=== PATIENT | female | born 1940 | race Caucasian/White ===

== ENCOUNTER → 2017-02-10 | Outpatient (CLI) | payer OTHER ==
[~2017-02-10] MED LIST: ADVIN10/60 INH; ATV5 PO; CHOL100010 PO; CIPR-255 PO; DILT240C9 PO; FLAX100019 PO; LISI-461 PO; OMEG10007 PO; OMEP20CA59 PO; ONDA4TAB7 SL
--- NOTE | 2017-02-11 07:50 | MAMMOGRAPHY REPORT ---
BILATERAL DIGITAL SCREENING MAMMOGRAM TOMOSYNTHESIS WITH CAD: 02/10/2017 CLINICAL HISTORY: Routine screening. Patient has no complaints. TECHNIQUE: Breast tomosynthesis in addition to standard 2D mammography was performed. Current study was also evaluated with a Computer Aided Detection (CAD) system. COMPARISON: Comparison is made to exams dated: 02/06/2016 mammogram, 06/12/2014 mammogram, 08/10/2012 ma mmogram, 07/20/2011 mammogram, 07/14/2010 mammogram, and 07/12/2009 mammogram - [facility]. BREAST COMPOSITION: There are scattered areas of fibroglandular density in both breasts. FINDINGS: There are new grouped calcifications within the right upper outer quadrant. Additionally, there is questionable architectural distortion seen within the right lateral breast as well as right retroareolar breast middle depth on the cc tomosynthesis images. Recommend spot magnification views and possible breast ultrasound for further evaluation. Additionally, there are possible new calcifications within the left upper outer quadrant, with possib le architectural distortion noted in the left upper outer quadrant on the tomosynthesis images. Néstor mmend spot magnification views and possible breast ultrasound for further evaluation. The remainder of both breasts demonstrate no suspicious masses, calcifications, or areas of principal architectural firm ural distortion. IMPRESSION: ACR BI-RADS CATEGORY 0: INCOMPLETE EVALUATION: NEED ADDITIONAL IMAGING EVALUATION Bilateral upper outer quadrant calcifications and possible associated architectural distortion, for w hich additional imaging evaluation is recommended (30 minute time slot). The patient will be called to schedule an appointment. Approximately 10% of breast cancers are not detected with mammography. A negative mammographic report should not delay biopsy if a clinically suggestive mass is present. Misa Montes M.D. ah/:02/10/2017 16:35:01 Termite Treater: Luly JEAN(Kenneth)(Trina)(BD), [facility] letter sent: Addl Imaging 0 BI-RADS Code: ACR BI-RADS Category 0: Incomplete Evaluation: Need Additional Imaging Evaluation
== END | disposition home or self-care (01) ==
LOC: C.MAMM 13:29
PROVIDERS: ATTEND Internal Medicine
DX: Z12.31 Encounter for screening mammogram for malignant neoplasm of breast (principal); R92.1 Mammographic calcification found on diagnostic imaging of breast

== ENCOUNTER → 2017-02-10 | Outpatient (CLI) | payer OTHER ==
[2017-02-10 16:55] LABS: BASO % 0.5 %; BASO ABS # 0.03 K/uL (0-0.2); COMPLETE YES; EOS % 1.7 %; HEMATOCRIT 41.3 % (37-47); IG% 0.3 %; LYMPH ABS # 2.24 K/uL (1.2-3.4); MEAN CELL VOLUME 83.9 fL (80-100); MEAN CORPUSCULAR HEMOGLOBIN 27.2 pg (25-34); MEAN CORPUSCULAR HGB CONC 32.4 g/dl (32-36); MEAN PLATELET VOLUME 11.4 fL (7.4-10.4); MONO % 7.3 %; NEUT % 56.2 %; PLATELET COUNT 309 K/uL (130-400); RED BLOOD COUNT 4.92 M/uL (4.2-5.4); WHITE BLOOD COUNT 6.58 K/uL (4.8-10.8)
[2017-02-10 17:08] LABS: ALT/SGPT 29 U/L (12-78); AST/SGOT 17 U/L (15-37); BLOOD UREA NITROGEN 20 mg/dl (7-18); BUN/CREATININE RATIO 20.7 (10-20); CALCIUM 9.1 mg/dl (8.5-10.1); CARBON DIOXIDE 25 mmol/L (21-32); CHLORIDE 108 mmol/L (98-107); CREATININE 0.97 mg/dl (0.60-1.20); GLUCOSE 86 mg/dl (70-99); POTASSIUM 4.1 mmol/L (3.5-5.1); SODIUM 140 mmol/L (136-145)
[2017-02-10 17:19] LABS: ALB/GLOB RATIO 1.1 (0.9-2); ALKALINE PHOSPHATASE 171 U/L (45-117); CHOLESTEROL 225 mg/dl (0-200); CHOLESTEROL/HDL RATIO 2.5; HDL CHOLESTEROL 90 mg/dl; LDL CHOLESTEROL CALCULATED 120 mg/dl; THYROID STIMULATING HORMONE 0.822 uIu/ml (0.300-4.500); TRIGLYCERIDES 73 mg/dl (0-150); VERY LOW DENSITY LIPOPROT CALC 15 mg/dl
== END | disposition home or self-care (01) ==
LOC: C.LABBC 12:56
PROVIDERS: ATTEND Internal Medicine
DX: Z00.00 Encounter for general adult medical examination without abnormal findings (principal); J45.991 Cough variant asthma; K21.9 Gastro-esophageal reflux disease without esophagitis; E55.9 Vitamin D deficiency, unspecified; R74.8 Abnormal levels of other serum enzymes; I10 Essential (primary) hypertension

== ENCOUNTER → 2017-02-19 | Outpatient (CLI) | payer OTHER ==
--- NOTE | 2017-02-19 15:38 | MAMMOGRAPHY REPORT ---
BILATERAL DIGITAL DIAGNOSTIC MAMMOGRAM AND TARGETED BILATERAL ULTRASOUND: 02/19/2017 CLINICAL HISTORY: Callback from screening mammogram for bilateral calcifications and questionable ass ociated architectural distortion. TECHNIQUE: Spot magnification bilateral cc and ML views were obtained. COMPARISON: Comparison is made to exams dated: 02/10/2017 mammogram, 02/06/2016 mammogram, 06/12/2014 m ammogram, 08/10/2012 mammogram, 07/20/2011 mammogram, and 07/14/2010 mammogram - [facility]. BREAST COMPOSITION: There are scattered areas of fibroglandular density in both breasts. FINDINGS: Spot magnification views of the right breast demonstrate new pleomorphic calcifications th roughout the right upper outer quadrant. The calcifications measure at least 6.2 x 4.1 x 3.9 cm in e xtent. Spot magnification views of the left breast demonstrate new grouped calcifications within the left upper outer quadrant which are also pleomorphic in morphology. The calcifications measure at l east 3.8 x 3.3 x 4 cm in extent. The calcifications are suspicious for DCIS and stereotactic biopsy of bilateral calcifications is recommended for further evaluation. Targeted ultrasound was performed of bilateral upper outer quadrants given the questionable data modeling architect ural distortion associated with the calcifications on the recent tomosynthesis screening mammograms. There is heterogeneous tissue is seen in these regions. A few areas of shadowing are noted, includin g ill-defined shadowing in the left 2:00 breast, 2 cm from the nipple and ill-defined shadowing in th e right 11:00 periareolar breast. No discrete suspicious masses noted on ultrasound. Morphologicall y normal bilateral axillary lymph nodes are seen, without evidence of adenopathy. IMPRESSION: ACR BI-RADS CATEGORY 4: SUSPICIOUS, TARGETED ULTRASOUND ACR BI-RADS CATEGORY 4: SUSPICIO US 1. New pleomorphic calcifications throughout the right upper outer quadrant, with possible associated architectural distortion on the tomosynthesis images. The calcifications measure up to 6.2 cm in ex tent. Findings are suspicious for DCIS and stereotactic biopsy is recommended for further evaluation . 2. New grouped calcifications in the left upper outer quadrant with questionable associated architec tural distortion noted on the tomosynthesis images. The calcifications measure up to 4 cm in extent. Findings are suspicious for DCIS and stereotactic biopsy is recommended for further evaluation. A phone call was made to the physician's office to confirm faxed results were received. The patient has been verbally notified of the results. She is tentatively scheduled the biopsies before leaving the department. Approximately 10% of breast cancers are not detected with mammography. A negative mammographic report should not delay biopsy if a clinically suggestive mass is present. Misa Montes M.D. ah/:02/19/2017 11:46:08 Ham Pumper: Melissa LOYA)(Trina), [facility] letter sent: Abnormal 4/5 BI-RADS Code: ACR BI-RADS Category 4: Suspicious Ultrasound BI-RADS: ACR BI-RADS Category 4: Suspici ous
== END | disposition home or self-care (01) ==
LOC: C.MAMM 09:15
PROVIDERS: ATTEND Internal Medicine
DX: R92.0 Mammographic microcalcification found on diagnostic imaging of breast (principal)

== ENCOUNTER → 2017-03-02 | Outpatient (CLI) | payer OTHER ==
--- NOTE | 2017-03-02 11:12 | Discharge Instructions ---
Discharge Instructions Procedure Procedure Date: Mar 02, 2017. Reason for visit: Bilateral Calcs. Discharge Discharge Date: Mar 02, 2017. Discharge Diagnosis: post bilateral breast stereotactic guided biopsy Medications Restart Stopped Medication(s): May restart Aspirin tomorrow Instructions Activity Recommendations: Additional Limitations (see below) Return to School/Work: no limitations Recommended Home Diet: No Limitations Provider Instructions: ACTIVITY RECOMMENDATIONS: * No lifting, pushing, pulling or exercising the affected side for three days. RETURN TO SCHOOL/WORK: * You may return to work/school after the procedure, but do not perform any strenuous activities for 24 to 48 hours. MEDICATIONS: * Tylenol (two 325 mg) every four to six hours if needed for mild pain (if not allergic to Tylenol). DIET: * Resume previous diet. SPECIAL CARE INSTRUCTIONS: * Keep biopsy site dry for 24 hours. May shower after 24 hours, but do not soak (bathe) incision. * May remove Tegaderm (plastic patch) tomorrow AFTER showering. * Leave the steri-strips on for one week. Allow the steri-strips to fall off by themselves. If not off after one week, you may remove them. You may place a Bandaid crosswise over the strips, if desired. * Apply ice 10 minutes on and 10 minutes off as needed. * Wear a bra at bedtime to sleep more comfortably for 2-3 days. * Your referring physician should have the results after approximately 5 to 7 business days. * Call for unusual bleeding, fever, drainage, etc or if you have any questions call [phone] during normal business hours or after hours call Dr Constantino, . FOLLOW UP VISIT: Follow-up with Referring Physician as scheduled. Allergies Coded Allergies: Sulfa Antibiotics (Verified Allergy, Intermediate, HIVES, 05/09/14) Oxycodone (Verified Allergy, Unknown, RASH, 05/09/14) Jaun Ackerman Recommendations: Call your doctor if: * Temperature above 101 degrees * Pain not relieved by pain medicine ordered * There is increased drainage or redness from any incision * You have any unanswered questions or concerns. Your Doctors Instructions noted above were prepared by provider Janice Constantino. Patient Signature Section: Patient Instructions Signature Page Paulinechip Basurto Patient (or Guardian) Signature/Date: I have read and understand the instructions given to me by my caregivers. Caregiver/RN/Doctor Signature/Date: The above-named patient and/or guardian has received patient instructions on this date. + Original Patient Signature Page (only) stays with chart. Please make copy for patient.
--- NOTE | 2017-03-02 15:08 | MAMMOGRAPHY REPORT ---
STEREOTACTIC GUIDED BIOPSY: 03/02/2017 CLINICAL HISTORY: Suspicious regional pleomorphic microcalcifications in the right upper outer quadra nt and clustered macro calcifications with possible associated architectural distortion in the left u pper outer quadrant. Patient presents for bilateral breast stereotactic guided biopsy. Please refer to the report from right breast stereotactic guided biopsy performed at the same time fo r full detail. IMPRESSION: STEREOTACTIC GUIDED BIOPSY Please refer to the report from right breast stereotactic guided biopsy performed at the same time fo r full detail. Janice Constantino M.D. ay/:03/02/2017 10:49:32 Attending Technologist: Halie Hernandez RT(R)(M), [facility] Completions Manager: Armando Cole RT(R)(M), [facility]
--- NOTE | 2017-03-02 15:08 | MAMMOGRAPHY REPORT ---
BILATERAL DIGITAL DIAGNOSTIC MAMMOGRAM: 03/02/2017 CLINICAL HISTORY: Status post stereotactic biopsy of pleomorphic microcalcifications regionally distr ibuted in the right upper outer quadrant, and clustered in the left upper outer quadrant. Please refer to report from right breast stereotactic guided biopsy performed at the same time for fu ll detail. IMPRESSION: POST PROCEDURE IMAGING FOR MARKER PLACEMENT Please refer to report from right breast stereotactic guided biopsy performed at the same time for fu ll detail. Approximately 10% of breast cancers are not detected with mammography. A negative mammographic report should not delay biopsy if a clinically suggestive mass is present. Janice Constantino M.D. ay/:03/02/2017 10:50:34 Attending Technologist: Halie Hernandez RT(R)(M), [facility] Temp Recruiter: Armando Cole RT(R)(M), [facility] BI-RADS Code: Post Procedure Imaging For Marker Placement
--- NOTE | 2017-03-02 15:08 | MAMMOGRAPHY REPORT ---
STEREOTACTIC GUIDED BIOPSY RIGHT BREAST: 03/02/2017 CLINICAL HISTORY: Suspicious regional pleomorphic microcalcifications in the right upper outer quadra nt and clustered macro calcifications with possible associated architectural distortion in the left u pper outer quadrant. Patient presents for bilateral breast stereotactic guided biopsy. COMPARISON: Comparison is made to exams dated: 02/19/2017 ultrasound, 02/19/2017 mammogram, 7 mammogram, 02/06/2016 mammogram, 06/12/2014 mammogram, and 08/10/2012 mammogram - [facility]. PATIENT CONSENT: After explaining the risks, benefits and alternatives of the procedure to the patien t, informed consent was obtained both verbally and in writing. Specific risks include: Bleeding, inf ection, puncture of adjacent structure, pain, nontarget biopsy, sampling error, metal allergy and med ication reaction. PROCEDURE DESCRIPTION: A time-out was performed and both breasts were confirmed as sites of stereotac tic biopsy. The patient was placed prone on the stereotactic biopsy table and first the right breast was placed in lateralmedial compression. A auto mechanics teacher image was obtained that demonstrated the clustered microcalcifications in question. They are amenable to sterotactic biopsy. Then +15 and -15 stereo pair images were obtained. The calcifications were targeted utilizing the coordinates obtained by [employer]. The skin was prepped with Betadine. 1% Lidocaine with and without epinipherine was admin istered as local anesthesia. A small skin incision was made. Through the incision, the needle was in serted to the depth determined by the computer. 10 samples were obtained using a Browsarityiva 9-gauge vacuum-assisted biopsy device. The specimen radiograph demonstrated several solar sales representative microcalci fications, therefore, a metallic marker was placed at the biopsy site. There was no immediate complic ation. Hemostasis was achieved after several minutes of manual compression. The samples were sent to pathology in a single appropriately labeled container, as calcifications were identified within near ly every core biopsy sample. Then, the patient was repositioned and the left breast was placed in lateralmedial compression. A sc out image was obtained that demonstrated the clustered microcalcifications in question. +15 and -15 stereo pair images were obtained. The calcifications were targeted utilizing the coordinates obtain ed by the computer. The skin was prepped with Betadine. 1% Lidocaine with and without epinipherine w as administered as local anesthesia. A small skin incision was made. Through the incision, the needl e was inserted to the depth determined by the computer. 10 samples were obtained using a Browsarityiva 9-gauge vacuum-assisted biopsy device. The specimen radiograph demonstrated several solar sales representative mi crocalcifications, therefore, a metallic marker was placed at the biopsy site. There was no immediate complication. Hemostasis was achieved after several minutes of manual compression. The samples were sent to pathology in a single appropriately labeled container, as calcifications were identified wit hin nearly every core biopsy sample. Postprocedure CC and ML views of each breast were obtained. There is a new dumbbell-shaped biopsy ma rker clip in the right breast, and small, 16mm hematoma at the biopsy site. A dumbbell shaped biopsy marker clip is also seen in the left upper outer quadrant, but no significant postbiopsy hematoma id entified on the left. IMPRESSION: STEREOTACTIC GUIDED BIOPSY Status post bilateral stereotactic guided biopsies of pleomorphic microcalcifications in each breast, with biopsy marker clips placed at the site of biopsy. The patient will receive notification of the biopsy results from her referring physician. Janice Constantino M.D. ay/:03/02/2017 11:33:52 Attending Technologist: Halie Hernandez RT(R)(M), [facility] [employer] Marketing Associate: Armando OSEGUERAR)(M), [facility]
== END | disposition home or self-care (01) ==
LOC: C.MAMM 09:46
PROVIDERS: ATTEND Internal Medicine
DX: R92.0 Mammographic microcalcification found on diagnostic imaging of breast (principal); D05.81 Other specified type of carcinoma in situ of right breast

== ENCOUNTER → 2017-03-08 | Outpatient (CLI) | payer OTHER ==
[2017-03-08 14:37] LABS: BLOOD UREA NITROGEN 22 mg/dl (7-18); BUN/CREATININE RATIO 20.6 (10-20); CREATININE 1.07 mg/dl (0.60-1.20)
== END | disposition home or self-care (01) ==
LOC: C.LABBC 10:05
PROVIDERS: ATTEND Surgery
DX: D05.11 Intraductal carcinoma in situ of right breast (principal)

== ENCOUNTER → 2017-03-16 | Outpatient (CLI) | payer OTHER ==
[~2017-03-16] MED LIST changes: +GADAVIST IV PRN
--- NOTE | 2017-03-17 16:03 | MAMMOGRAPHY REPORT ---
BREAST MRI OF BOTH BREASTS : 03/16/2017 CLINICAL HISTORY: Recent biopsy proven bilateral breast DCIS. Patient presents for preoperative asse ssment to assess for extent of disease. COMPARISON: Comparison is made to exams dated: 03/02/2017 stereotactic biopsy, 03/02/2017 mammogram, 03/02/2017 stereotactic biopsy, 02/19/2017 ultrasound, 02/19/2017 mammogram, and 02/10/2017 mammogram - [facility]. TECHNIQUE: Using a 1.5 Cat magnet and dedicated breast coil, multisequence axial images were obtain ed through the breasts. After uneventful IV administration of 7.5 mL of Gadavist, dynamic multiphase contrast-enhanced axial images, and sagittal postcontrast were obtained. Temporal subtraction axial images and 3-D MIP images are provided. Everything was then reviewed on a 3-D workstation, [employer]. FINDINGS: Right breast: There is diffuse enhancement of the glandular tissue of the right breast. Susceptibili ty artifact from a biopsy marker clip is identified in the approximate 9:00 to 10:00 right breast. T he kinetic pattern is mixed persistent and plateau with clumped areas of washout kinetics throughout. These findings are concerning for multicentric right breast DCIS, which is noted within the upper i nner, upper outer and inferior breast. Based on the enhancement, the area involved measures approxim ately 5.1 cm in craniocaudal by 4.1 cm in AP by 3.2 cm in transverse dimension. No focal skin thicke bladimir or nipple retraction. The retromammary fat is intact. No suspicious right axillary lymphadenop athy. Left breast: There is diffuse enhancement of the glandular tissue of the left breast. Susceptibility artifact from a biopsy clip is identified in the approximate 3:00 middle one third of the left breas t. The kinetic pattern of enhancement is mixed persistent and plateau, again with clumped areas of w ashout kinetics throughout similar in appearance to the contralateral right breast. These findings a re concerning for multicentric left breast DCIS, mostly within the upper inner and upper outer quadra nt of the left breast. Based on the enhancement, the area involved measures approximately 5.5 cm in craniocaudal by 6.3 cm in AP by 3.5 cm in transverse dimension. No focal skin thickening or nipple r etraction. The retromammary fat is intact. No suspicious left axillary lymphadenopathy. IMPRESSION: ACR BI-RADS CATEGORY 6: KNOWN BIOPSY PROVEN MALIGNANCY 1. Diffuse enhancement of the glandular tissue of both breasts, predominantly within the upper inner and upper outer quadrants of each breast but also involving the inferior right breast. These findin gs are concerning for multicentric bilateral DCIS. Size measurements are similar to those obtained m ammographically taking into account measuring both microcalcifications and areas of distortion. 2. No suspicious axillary adenopathy identified. The patient will receive written notification of the results. Janice Constantino M.D. ay/:03/16/2017 18:09:19 Information Delivery Analyst: risk control field representative, [facility] letter sent: Birad 6 BI-RADS Code: ACR BI-RADS Category 6: Known Biopsy Proven Malignancy
== END | disposition home or self-care (01) ==
LOC: C.MRI 08:12
PROVIDERS: ATTEND Surgery
DX: D05.11 Intraductal carcinoma in situ of right breast (principal); D05.12 Intraductal carcinoma in situ of left breast

== ENCOUNTER 2017-04-09 07:25 | Observation (INO) | payer OTHER ==
[2017-03-26 09:38] VITALS: BMI 28.0
--- NOTE | 2017-03-26 10:07 | PAT Medication Instructions ---
Service Date Mar 26, 2017. Current Home Medication List Aspirin (Aspirin Ec), 81 MG PO QAM Cholecalciferol (D-1000), 1 TAB PO QAM Diltiazem Hcl (Tiazac 240 Mg), 240 MG PO DAILY Fish Oil (Plains-3), 1,200 MG PO DAILY Flaxseed (Linseed) (Flaxseed Oil 1000 mg), 1 CAP PO DAILY Fluticasone Prop/Salmeterol (Advair Diskus 250-50 Mcg/Dose), 1 PUFF INH DAILY PRN for SOB/Wheezing Lisinopril (Zestril), 10 MG PO QAM Lorazepam (Lorazepam), 1 TAB PEG DAILY PRN for Anxiety/Agitation Omeprazole (Prilosec), 20 MG PO DAILY Medication Instructions For Your Scheduled Surgery - Hold the following medications 2 weeks prior to surgery: Flaxseed (Linseed) (Flaxseed Oil 1000 mg), 1 CAP PO DAILY Fish Oil (Plains-3), 1,200 MG PO DAILY - Hold the following medications 7 days prior to surgery per your surgeon's instructions Aspirin (Aspirin Ec), 81 MG PO QAM - Hold the following medications the night before surgery: Lisinopril (Zestril), 10 MG PO QAM - Hold the following medications the morning of surgery: Cholecalciferol (D-1000), 1 TAB PO QAM - Take the following medications the morning of surgery with a sip of water: Omeprazole (Prilosec), 20 MG PO DAILY Lorazepam (Lorazepam), 1 TAB PEG DAILY PRN for Anxiety/Agitation (if needed) Fluticasone Prop/Salmeterol (Advair Diskus 250-50 Mcg/Dose), 1 PUFF INH DAILY PRN for SOB/Wheezing (if needed) Diltiazem Hcl (Tiazac 240 Mg), 240 MG PO DAILY - Take the following medications as scheduled the night before surgery: Lorazepam (Lorazepam), 1 TAB PEG DAILY PRN for Anxiety/Agitation (if needed) Fluticasone Prop/Salmeterol (Advair Diskus 250-50 Mcg/Dose), 1 PUFF INH DAILY PRN for SOB/Wheezing (if needed) If you have any questions please call us at [phone] or [phone] or [phone]
[2017-04-09] VITALS (11 sets, daily range): BP systolic 120–162; BP diastolic 70–83; PULSE 67–80; TEMP 36–36.8; O2SAT 92–97; Ht 167.6 cm; Wt 79.0 kg
[~2017-04-09] VITALS: Ht 167.6 cm; Wt 79.0 kg
[~2017-04-09 07:25] MED LIST changes: +ACETAMINOPHEN 1000 MG/100 ML IV IV ONE; -ADVIN10/60 INH; +ADVIN25050 INH; +ASPI81TA28 PO; -ATV5 PO; +ATV5X PEG; +CEFAZOLIN 2000MG IV PUSH 10 ML IV SCH; -CHOL100010 PO; +CHOLTAB5 PO; -CIPR-255 PO; -GADAVIST IV PRN; +LACTATED RINGER'S 1000ML 1,000 ML IV SCH; -ONDA4TAB7 SL
--- NOTE | 2017-04-09 08:59 | DIAGNOSTIC IMAGING REPORT ---
LYMPHOSCINTIGRAPHY CLINICAL HISTORY: Bilateral breast cancer. PROCEDURE: RIGHT BREAST: Using standard sterile technique, 4 intradermal and one deep injection of 0.5 mCi of Lymphoseek was placed in the right breast. The patient tolerated the procedure well. There were no immediate complications. The patient was subsequently transported to the surgical suite. No imaging was obtained at the referring physician's request. LEFT BREAST: Using standard sterile technique, 4 intradermal and one deep injection of 0.5 mCi of Lymphoseek was placed in the left breast. The patient tolerated the procedure well. There were no immediate complications. The patient was subsequently transported to the surgical suite. No imaging was obtained at the referring physician's request. IMPRESSION: Successful injection of Lymphoseek into the bilateral breasts. Electronically signed by: Jasson Brown M.D. 04/09/2017 8:57 AM Dictated Date/Time: 04/09/2017 8:55 AM
[2017-04-09] MEDS ORDERED: PROPOFOL IV EMULSION 10 MG/ML 20 ML VIAL IV ONE ×2 (09:05→12:07)
[2017-04-09] MEDS ORDERED: HYDROmorphone INJ 2 MG/ML SYR/VIAL ONE (09:05)
[2017-04-09] MEDS ORDERED: LIDOCAINE HCL 2% 2 ML VIAL (20MG/ML) ONE (09:05)
[2017-04-09] MEDS ORDERED: ONDANSETRON INJ 2 MG/ML 2 ML VIAL ONE ×2 (09:05→12:16)
[2017-04-09] MEDS ORDERED: DEXAMETHASONE SOD INJ 4 MG/ML VIAL ONE (09:05)
[2017-04-09] MEDS ORDERED: FENTANYL CITRATE INJ 50 MCG/1 ML 2 ML VIAL ONE (09:05)
[2017-04-09] MEDS ORDERED: LABETALOL HCL IV 5 MG/ML 20ML IV PRN (09:30)
[2017-04-09] MEDS ORDERED: HYDROmorphone INJ 2 MG/ML SYR/VIAL IV PRN (09:30)
[2017-04-09] MEDS ORDERED: ATROPINE SULFATE 0.1 MG/ML 5ML SYR IV PRN (09:30)
[2017-04-09] MEDS ORDERED: NALOXONE HCL 0.4 MG/1 ML VIAL/CARP IV PRN (09:30)
[2017-04-09] MEDS ORDERED: FLUMAZENIL 0.1 MG/1 ML 10 ML VIAL IV PRN (09:30)
[2017-04-09] MEDS ORDERED: ONDANSETRON INJ 2 MG/ML 2 ML VIAL IV PRN (09:30)
[2017-04-09] MEDS ORDERED: PHENYLEPHRINE 100MCG/ML 5ML SYR IV PRN (09:30)
[2017-04-09] MEDS ORDERED: MEPERIDINE HCL 25 MG/ML CARP IV PRN (09:30)
[2017-04-09] MEDS ORDERED: FENTANYL CITRATE INJ 50 MCG/1 ML 2 ML VIAL IV PRN (09:30)
[2017-04-09] MEDS ORDERED: EpHEDrine SULFATE INJ 50 MG/ML AMP IV PRN (09:30)
--- NOTE | 2017-04-09 10:08 | History & Physical Bridge Note ---
H&P Re-Evaluation Bridge Note: I have examined the patient, reviewed the History & Physical and in the interval since the performance of the History & Physical I have noted the following changes of clinical significance: No changes noted
[2017-04-09] MEDS ORDERED: EpINEphrine INJ 1MG/ML AMP 1 MG/ML AMP ONE (10:25)
[2017-04-09] MEDS ORDERED: BUPIVACAINE 0.5 % 5 MG/1 ML MPF 30ML VIAL ONE (10:25)
[2017-04-09] MEDS ORDERED: ARISTA ABSORBABLE HEMOSTAT 3GM TOP ONE (11:44)
[2017-04-09] MEDS ORDERED: GLYCOPYRROLATE INJ 0.2 MG/ML VIAL ONE (12:16)
[2017-04-09] MEDS ORDERED: NEOSTIGMINE METHYLSULFATE 5 MG/5 ML SYR ONE (12:16)
--- NOTE | 2017-04-09 13:00 | [facility] Post Operative Brief Note ---
Immediate Operative Summary Operative Date Apr 09, 2017. 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 Calvin Leon Workers' Compensation Claims Examiner Surgeon(s) Luis Matthews PA-C Estimated Blood Loss 50ml Findings normal appearing anatomy c/w pre-op diagnosis Specimens C.) Left Breast - long stitch = lateral/ short stitches = superior - sent to lab fresh at 1217 D.) Left [place] Lymph Node #1 - out of body at 1209 - sent to lab fresh at 1217 E.) Left [place] Lymph Node #2 - out of body at 1214 - sent to lab fresh at 1217 F.) Additional Left Breast Drains 10 mm PARISH's bilaterally Anesthesia get Complication(s) None Disposition Recovery Room / PACU
[2017-04-09] MEDS ORDERED: HYDR-5688 PO (13:12)
[2017-04-09] MEDS ORDERED: LORAZEPAM 0.5 MG TAB PO PRN (13:15)
[2017-04-09] MEDS ORDERED: MoRPHine SULFATE 4 MG/ML 1 ML CARP\\VIAL IV PRN (13:15)
[2017-04-09] MEDS ORDERED: HYDROCODONE/ACETAMOPHEN 5/325MG TAB PO PRN (13:15)
[2017-04-09] MEDS ORDERED: FLUTICASONE/SALMETEROL 250/50 (ADVAIR) 14 PUFF/1 INHALER INH PRN (13:15)
--- NOTE | 2017-04-09 13:17 | [facility] Operative Report ---
Operative Report Operative Date Apr 09, 2017. 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 Calvin Leon Roll Coating Machine Operator Surgeon(s) Luis Matthews PA-C Estimated Blood Loss 50ml Findings normal anatomy c/w pre-op diagnosis Specimens C.) Left Breast - long stitch = lateral/ short stitches = superior - sent to lab fresh at 1217 D.) Left [place] Lymph Node #1 - out of body at 1209 - sent to lab fresh at 1217 E.) Left [place] Lymph Node #2 - out of body at 1214 - sent to lab fresh at 1217 F.) Additional Left Breast Drains 10 mm PARISH's bilaterally Anesthesia get Complication(s) None Disposition Recovery Room / PACU Description of Procedure Prior to coming to the operating room the patient had gone to nuclear medicine and had radioisotope injected in the periareolar regions bilaterally. She was then brought to the operating suite and placed in a supine position. After successful intubation both arms were extended and the bilateral upper chest and axilla were sterilely prepped and draped in usual fashion. We began with the right breast. I made an elliptical incision around the entire breast from the medial side down to the inframammary fold. We made flaps superiorly to the clavicle and inferiorly to the inframammary fold. We took it the whole way down to the fascia although we did not remove fascia. We continued from medial to lateral until we had the entire breast removed in 1 piece. We controlled any bleeding points using electrocautery or 3-0 Vicryl ties. We did try to follow the breast tissue the whole way into the axillary tail. We marked it such that 2 short sutures were superior and one long suture was lateral. We then used the neoprobe device to find the sentinel lymph nodes. We were able to extract these using traction countertraction electrocautery through her mastectomy incision. We did check these ex-situ to to ensure that they were "hot nodes" . 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 We had at least 2 good sentinel lymph nodes from the axillary region. Once this was done I thoroughly irrigated the wound to ensure there was no active bleeding points. We used Davidson powder on all the raw surfaces. I placed a 10 flat Emanuel- Yeung drain and brought out through a separate stab incision in the inferior portion of the incision. The wound was then closed in multiple layers using 0 Vicryl for the deeper layers 2-0 Vicryl for the mid layers and 3-0 Monocryl for the skin. Benzoin and Steri-Strips as well as gauze dressing were applied. Attention then turned to the left side. We used essentially the exact same technique. We made an elliptical incision and carried it the whole way back to the axillary tail. We went down to the fascia the pectoralis muscle again leaving fascia behind. We created flaps superiorly to the clavicle and inferiorly to the inframammary fold. Again we went from medial to lateral until we had all the rest tissue removed. We also marked this side with 2 short stitches superiorly and one long stitch laterally. Once we had the breast removed again we used the neoprobe device to locate 2 sentinel lymph nodes. They were extracted and sent separately. There was no additional chucky activity on the left side. We again thoroughly irrigated the entire wound. We used Davidson powder on all the raw surfaces and placed a 10 flat Emanuel-Yeung drain through a separate stab incision. We again closed in multiple layers using 0 Vicryl for deep layers 2-0 Vicryl for mid layers and 3-0 Monocryl for skin. Benzoin/ Steri-Strips were applied as well as gauze dressing. A surgical bra was also placed at the end of the procedure. The patient was awaken extubated and transferred recovery in stable condition. My physician's promotional advertising assistant was present throughout the entire case. He helped prepped the patient helped with retraction and exposure throughout the entire case. He also helped with wound closure and dressing placement. I attest to the content of the Intraoperative Record and any orders documented therein. Any exceptions are noted below.
--- NOTE | 2017-04-09 13:17 | Discharge Instructions ---
Discharge Instructions Date of Service Apr 09, 2017. Admission Reason for Admission: Bilateral Ductal Carcinoma In Situ W/Nm Inj Only Discharge Discharge Diagnosis / Problem: bilateral mastectomy Discharge Goals Goal(s): Improve disease control Activity Recommendations Activity Limitations: as noted below Shower/Bathe: keep incision dry (keep drains dry until removed) . Instructions / Follow-Up Instructions / Follow-Up Dr. Leon's office next week to have drains removed, call [phone] Record daily drainage (over 24 hrs) from each Current Hospital Diet Patient's current hospital diet: Clear Liquid Diet Discharge Diet Recommended Diet: Regular Diet Procedures Procedures Performed: Bilateral Breast Mastectomy with Bilateral [place] Lymph Node Biopsy Pending Studies Studies pending at discharge: yes List of pending studies: pathology Laboratory Results Lipid Panel Test 02/10/17 13:00 Range/Units Triglycerides Level 73 0-150 mg/dl Cholesterol Level 225 H 0-200 mg/dl HDL Cholesterol 90 mg/dl Cholesterol/HDL Ratio 2.5 LDL Cholesterol, Calculated 120 mg/dl Medical Emergencies . Who to Call and When: Medical Emergencies: If at any time you feel your situation is an emergency, please call 911 immediately. . Non-Emergent Contact Non-Emergency issues call your: Surgeon Call Non-Emergent contact if: you have a fever, temperature is above 101.5, your pain is not controlled, wound has increased drainage, wound has increased redness, wound has increased pain, you have any medication questions . "Provider Documentation" section prepared by Luis Matthews. . VTE Core Measure Inpt VTE Proph given/why not?: SCD's
--- NOTE | 2017-04-09 14:00 | Anesthesiology Progress Note ---
Anesthesia Post Op Note Date & Time Apr 09, 2017 at 13:59 Vital Signs Pain Intensity: 2 Vital Signs Past 12 Hours Date Time Temp Pulse Resp B/P (MAP) Pulse Ox O2 Delivery O2 Flow Rate FiO2 04/09/17 13:55 78 18 131/71 96 Nasal Cannula 2 04/09/17 13:45 66 12 129/69 94 Nasal Cannula 2 04/09/17 13:35 36.7 81 18 123/78 92 Room Air 04/09/17 13:25 70 20 125/71 98 Oxymask 10 04/09/17 13:15 76 18 123/73 99 Oxymask 10 04/09/17 13:08 36.4 76 18 114/67 97 Oxymask 10 04/09/17 07:58 36.6 79 18 162/79 (106) 97 Room Air Notes Mental Status: alert / awake / arousable, participated in evaluation Pt Amnestic to Procedure: Yes Nausea / Vomiting: adequately controlled Pain: adequately controlled Airway Patency, RR, SpO2: stable & adequate BP & HR: stable & adequate Hydration State: stable & adequate Anesthetic Complications: no major complications apparent
--- NOTE | 2017-04-09 14:06 | Anesthesiology Progress Note ---
Anesthesia Post Op Note Date & Time Apr 09, 2017 at 14:06 Vital Signs Pain Intensity: 2 Vital Signs Past 12 Hours Date Time Temp Pulse Resp B/P (MAP) Pulse Ox O2 Delivery O2 Flow Rate FiO2 04/09/17 13:55 78 18 131/71 96 Nasal Cannula 2 04/09/17 13:45 66 12 129/69 94 Nasal Cannula 2 04/09/17 13:35 36.7 81 18 123/78 92 Room Air 04/09/17 13:25 70 20 125/71 98 Oxymask 10 04/09/17 13:15 76 18 123/73 99 Oxymask 10 04/09/17 13:08 36.4 76 18 114/67 97 Oxymask 10 04/09/17 07:58 36.6 79 18 162/79 (106) 97 Room Air Notes Mental Status: alert / awake / arousable, participated in evaluation Pt Amnestic to Procedure: Yes Nausea / Vomiting: adequately controlled Pain: adequately controlled Airway Patency, RR, SpO2: stable & adequate BP & HR: stable & adequate Hydration State: stable & adequate Anesthetic Complications: no major complications apparent
[2017-04-09] MEDS ORDERED: IV FLUIDS COMPLETED PRN (15:00)
[2017-04-09] MEDS: LACTATED RINGER'S 1000ML 1,000 ML IV SCH (15:20)
[2017-04-09] MEDS ORDERED: LISINOPRIL 10 MG TAB PO SCH (21:00)
[2017-04-10 03:03] VITALS: BP 160/82; PULSE 74; TEMP 36.6; O2SAT 91
[2017-04-10 04:50] VITALS: BP 137/76
[2017-04-10] MEDS: LACTATED RINGER'S 1000ML 1,000 ML IV SCH (05:32)
[2017-04-10 06:34] LABS: BASO % 0.1 %; BASO ABS # 0.01 K/uL (0-0.2); HEMATOCRIT 36.1 % (37-47); HEMOGLOBIN 12.1 g/dL (12.0-16.0); IG# 0.03 K/uL (0.00-0.02); LYMPH ABS # 1.07 K/uL (1.2-3.4); MEAN CELL VOLUME 83.2 fL (80-100); MEAN CORPUSCULAR HEMOGLOBIN 27.9 pg (25-34); MEAN CORPUSCULAR HGB CONC 33.5 g/dl (32-36); MEAN PLATELET VOLUME 10.7 fL (7.4-10.4); MONO % 4.9 %; MONO ABS # 0.75 K/uL (0.11-0.59); NEUT % 87.8 %; NEUT ABS # 13.45 K/uL (1.4-6.5); PLATELET COUNT 225 K/uL (130-400); RED CELL DISTRIBUTION WIDTH CV 13.7 % (11.5-14.5); RED CELL DISTRIBUTION WIDTH SD 41.6 fL (36.4-46.3); WHITE BLOOD COUNT 15.31 K/uL (4.8-10.8)
[2017-04-10 07:04] LABS: CALCIUM 8.9 mg/dl (8.5-10.1); CREATININE 1.02 mg/dl (0.60-1.20); POTASSIUM 4.3 mmol/L (3.5-5.1)
[2017-04-10 07:58] VITALS: BP 133/76; PULSE 72; TEMP 37; O2SAT 92
--- NOTE | 2017-04-10 08:32 | Surgery Progress Note ---
Surgery Progress Note Date of Service Apr 10, 2017. Subjective Post OP Day: 1 + feeling well, + ambulating, + pain controlled, No complaints, No nausea, No vomiting Objective Vital Signs: Date Time Temp Pulse Resp B/P (MAP) Pulse Ox O2 Delivery O2 Flow Rate FiO2 04/10/17 08:07 Room Air 04/10/17 07:58 37.0 72 16 133/76 (95) 92 Room Air 04/10/17 04:50 137/76 (96) 04/10/17 03:03 36.6 74 16 160/82 (108) 91 Room Air 04/09/17 23:59 Room Air 04/09/17 23:32 36.8 75 16 120/72 (88) 92 Room Air 04/09/17 21:10 67 133/83 (100) 04/09/17 19:58 96 Room Air 04/09/17 19:55 92 Room Air 04/09/17 17:12 36.5 73 18 144/77 (99) 95 Nasal Cannula 2.0 04/09/17 16:06 36.7 67 16 128/76 (93) 96 Nasal Cannula 2.0 04/09/17 15:15 Nasal Cannula 04/09/17 15:07 36.0 69 18 131/76 (94) 93 Nasal Cannula 2.0 04/09/17 14:46 92 Nasal Cannula 2.0 04/09/17 14:40 36.6 68 18 129/71 (90) 92 Nasal Cannula 2.0 04/09/17 14:10 93 Nasal Cannula 2.0 04/09/17 14:09 36.8 80 18 127/70 (89) 93 Nasal Cannula 2.0 04/09/17 13:55 78 18 131/71 96 Nasal Cannula 2 04/09/17 13:45 66 12 129/69 94 Nasal Cannula 2 04/09/17 13:35 36.7 81 18 123/78 92 Room Air 04/09/17 13:25 70 20 125/71 98 Oxymask 10 04/09/17 13:15 76 18 123/73 99 Oxymask 10 04/09/17 13:08 36.4 76 18 114/67 97 Oxymask 10 Physical Exam: PARISH drainage (Right breast (PARISH #1) 80cc (04/09/17), 25cc (today) Left Breast (PARISH #2) 61cc (04/09/17), 25cc (today) serosang drainage in both. ) General Appearance: WD/WN, no apparent distress Head: normocephalic, atraumatic Respiratory/Chest: no respiratory distress, no accessory muscle use Incision(s): clean, dry, intact, no erythema, no drainage (Both left and right incision healing well, steri-strips still in place, non-tender to palpation. ) Laboratory Results: Results Past 24 Hours Test 04/10/17 06:11 Range/Units White Blood Count 15.31 4.8-10.8 K/uL Red Blood Count 4.34 4.2-5.4 M/uL Hemoglobin 12.1 12.0-16.0 g/dL Hematocrit 36.1 37-47 % Mean Corpuscular Volume 83.2 80-100 fL Mean Corpuscular Hemoglobin 27.9 25-34 pg Mean Corpuscular Hemoglobin Concent 33.5 32-36 g/dl Platelet Count 225 130-400 K/uL Mean Platelet Volume 10.7 7.4-10.4 fL Neutrophils (%) (Auto) 87.8 % Lymphocytes (%) (Auto) 7.0 % Monocytes (%) (Auto) 4.9 % Eosinophils (%) (Auto) 0.0 % Basophils (%) (Auto) 0.1 % Neutrophils # (Auto) 13.45 1.4-6.5 K/uL Lymphocytes # (Auto) 1.07 1.2-3.4 K/uL Monocytes # (Auto) 0.75 0.11-0.59 K/uL Eosinophils # (Auto) 0.00 0-0.5 K/uL Basophils # (Auto) 0.01 0-0.2 K/uL RDW Standard Deviation 41.6 36.4-46.3 fL RDW Coefficient of Variation 13.7 11.5-14.5 % Immature Granulocyte % (Auto) 0.2 % Immature Granulocyte # (Auto) 0.03 0.00-0.02 K/uL Sodium Level 138 136-145 mmol/L Potassium Level 4.3 3.5-5.1 mmol/L Chloride Level 106 98-107 mmol/L Carbon Dioxide Level 26 21-32 mmol/L Anion Gap 6.0 3-11 mmol/L Blood Urea Nitrogen 20 7-18 mg/dl Creatinine 1.02 0.60-1.20 mg/dl Est Creatinine Clear Calc Drug Dose 48.2 ml/min Estimated GFR () 61.0 Estimated GFR (Non- 52.6 BUN/Creatinine Ratio 19.5 10-20 Random Glucose 133 70-99 mg/dl Calcium Level 8.9 8.5-10.1 mg/dl Assessment & Plan Assessment: 76-year-old female POD #1- s/p Bilateral Breast Mastectomy with Bilateral [place] Lymph Node biopsy with Dr. Leon. Plan: Patient doing very well. Pain controlled with PO pain medication. Tolerating advanced diet. [address] Incision intact, no signs of infection, steri-strips still in place. Both written and verbal discharge instructions provided to patient. [facility]. Patient ok for discharge. Return precautions discussed with patient.
[2017-04-10] MEDS ORDERED: DILTIAZEM HCL 120 MG EXT REL CAP PO SCH (09:00)
[2017-04-10] MEDS ORDERED: PANTOprazole SOD 40 MG TAB PO SCH (09:00)
[2017-04-10 10:29] VITALS: BP 133/76; PULSE 72; TEMP 37; O2SAT 92
== END 2017-04-10 11:18 | disposition home or self-care (01) ==
LOC: C.ACU 07:25 → C.MSW 13:11 → ENRESERV 13:54
PROVIDERS: ADMIT Surgery; ATTEND Surgery
DX: D05.11 Intraductal carcinoma in situ of right breast (principal); D05.12 Intraductal carcinoma in situ of left breast; J45.909 Unspecified asthma, uncomplicated; K21.9 Gastro-esophageal reflux disease without esophagitis; N99.3 Prolapse of vaginal vault after hysterectomy; G57.90 Unspecified mononeuropathy of unspecified lower limb; L57.0 Actinic keratosis; N81.11 Cystocele, midline; I10 Essential (primary) hypertension; I34.0 Nonrheumatic mitral (valve) insufficiency; N81.6 Rectocele; E55.9 Vitamin D deficiency, unspecified; Z86.711 Personal history of pulmonary embolism; Z79.82 Long term (current) use of aspirin; Z90.49 Acquired absence of other specified parts of digestive tract; Z90.722 Acquired absence of ovaries, bilateral; Z82.49 Family history of ischemic heart disease and other diseases of the circulatory system; Z80.3 Family history of malignant neoplasm of breast; Z80.7 Family history of other malignant neoplasms of lymphoid, hematopoietic and related tissues

== ENCOUNTER 2025-02-22 07:56 | Inpatient (IN) ==
--- NOTE | 2025-02-22 08:35 | Emergency Department Note ---
Impression & Plan Diarrhea, Generalized weakness ED Provider Note HISTORY OF PRESENT ILLNESS: Patient is a 84-year-old female presenting with diarrhea and nausea. Patient reports that she woke up this morning at 6 AM with a sudden urge to go to the bathroom and went to the bathroom and had a large volume loose stool. She states that about 15 minutes later she had another episode of this. She reports feeling nauseous but denies any vomiting. Denies any abdominal pain. Reports having normal bowel movements yesterday. She states that she did have an episode of diarrhea 5 days ago, but it thought it was a side effect of the antibiotics she was on last week for a UTI. She denies any fevers or chills. Denies any chest pain or shortness of breath. She states that she has been struggling with poorly controlled hypertension, as her doctor started her on a new blood pressure medication 4 days ago and she is trying to transition her meds to be taken at nighttime. She denies any headache or changes in vision. Denies any chest pain or shortness of breath. She reports she has had dry mouth for "2 months and no one can figure out why." She reports "I just do not feel well." ROS: as above PHYSICAL EXAM: Constitutional: Patient appears in no acute distress. HENT: Head: Normocephalic and atraumatic. Eyes: EOMI, PERRL Mouth/Throat: Mucous membranes moist. Neck: Trachea midline. Neck supple. Cardiovascular: RRR, No rubs or gallops. Intact distal pulses. Pulmonary/Chest: No respiratory distress. Breath sounds clear and equal bilaterally. No wheezes or rales. Abdominal: Abdomen soft, no tenderness, rebound or guarding. Musculoskeletal: No edema, tenderness or deformity noted. Skin: Warm and dry. No rash, erythema, pallor or cyanosis Psychiatric: Appropriate mood and affect for situation. Neurological: Alert and keenly responsive. CN II-XII grossly intact, moving all extremities equally and fully. MDM: - Vitals signs showed hypertension - History obtained via patient. History as above. - Chronic conditions affecting care: HTN; GERD; hx of PE - Differential diagnoses include, but are not limited to: Electrolyte abnormality; bowel obstruction; diverticulitis; colitis; viral syndrome - Order placed for continuous cardiac monitoring. At this time, monitor showed rate of 78 bpm with normal sinus rhythm, per my interpretation. - External medical records reviewed. Primary care visit note dated 02/19/2025 was reviewed. Patient was seen for a follow-up in the ER for hypertension. She was started on olmesartan 20 mg daily - EKG image interpreted by myself showed normal sinus rhythm. Rate 73 bpm. QT 408. No acute ischemic changes. - Laboratory workup interpreted by myself showed normal WBC; stable electrolytes; normal troponin; normal TSH; normal AST/ALT - UA negative for infection - CT abdomen/pelvis was negative for acute pathology. Noted to have a moderate hiatal hernia. - Viral respiratory panel negative - On reassessment, the patient reports still feeling generally unwell. Discussed results with the patient and her daughter at bedside. This is the patient's fourth ER visit in the last 11 days for continuation of symptoms. She is feeling very weak and unwell and expresses concern about going home for the fourth time. Will discuss case with hospitalist service. - Discussion was had with rehabilitation case coordinator about patient's case and need for admission - Hospitalist consulted for admission - Patient admitted to [facility] hospitalist service for further evaluation and management. 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) Medical History (Updated 02/22/25 @ 10:43 by Fabiola Dominguez MD) UTI (urinary tract infection) Abdominal pain Clostridium difficile infection Pneumonia Pulmonary embolism Surgical History History of tonsillectomy History of lymph node biopsy History of colonoscopy S/P mastectomy, bilateral History of hysterectomy History of appendectomy History of cholecystectomy Family History Brother Leukemia-lymphoma, T-cell, acute, [id number] Mother Breast cancer Hypertension Father Congestive heart failure Daughter Diabetes Other No significant family history Denies family history of Ovarian cancer Prostate cancer Myocardial infarction Lung cancer Colorectal cancer Social History Smoking Status: Never smoker Second Hand Exposure: No; Do You Dip or Chew Tobacco: No; Hx Alcohol Use: Yes (Once or twice a year) Alcohol type: beer, wine and hard liquor Alcohol type Comment: social Alcohol Intake Frequency: Monthly or Less Hx Substance Use: No Preferred Language: Palauan Communication Ability: Effective Visual Impairment: Limited Hearing Ability: Use of Hearing Aid marital status: Single Current Living Situation: Alone current occupational status: retired How many Children do You have: 2 Feels Safe at Home: Yes Childhood Exposure to Second-Hand Smoke: No Diet: regular caffeine: No (coke once in awhile and tea ) Dental Care, Regularly: Yes Physical Activity Frequency: 1-2 Times per Week Seatbelt Use: always Sunscreen Use: Yes Assistive Devices: Glasses and Hearing Aid - Bilateral Allergies Allergies Allergy/AdvReac Type Severity Reaction Status Date / Time Sulfa (Sulfonamide Allergy Intermediate HIVES Verified 02/19/25 13:02 Antibiotics) oxycodone Allergy Unknown RASH Verified 02/19/25 13:02 lisinopril AdvReac Mild Cough Uncoded 02/19/25 13:15 Home Meds Home Medications Medication Instructions Recorded Confirmed cholecalciferol (vitamin D3) 25 1,000 unit PO QAM 11/24/18 02/22/25 mcg (1,000 unit) capsule (Vitamin D3) flaxseed oil 1,000 mg capsule 1,000 mg PO QAM 11/24/18 02/22/25 omega 6-jla-xul-fish oil 1,000 mg 1 cap PO QAM 11/24/18 02/22/25 (120 mg-180 mg) capsule (Fish Oil) lactobacillus combination no.4 3 3,000 mmu cells PO DAILY 10/23/20 02/22/25 billion cell capsule (Probiotic) naproxen 375 mg tablet 375 mg PO UD PRN Pain 10/23/20 02/22/25 fluticasone 250 mcg-salmeterol 50 1 inh inhalation BID PRN sob 02/22/25 02/22/25 mcg/dose blistr powdr for inhalation rivaroxaban 20 mg tablet (Xarelto) 20 mg PO DAILY 02/22/25 02/22/25 Previous Rx's Medication Instructions Recorded diltiazem HCl 240 mg capsule,24 240 mg PO DAILY #90 caps 03/14/24 hr,extended release omeprazole 20 mg capsule,delayed 20 mg PO QAM #90 caps 04/11/24 release olmesartan 20 mg tablet 20 mg PO DAILY #30 tabs 02/19/25 Results & Data (ED) Vital Signs Vital Signs - 24 hr 02/22/25 08:03 02/22/25 08:10 02/22/25 08:30 Temperature 36.5 C Temperature Source Skin Pulse Rate 81 77 75 Pulse Rate from SpO2 Sensor 75 Pulse Rhythm Regular Respiratory Rate 20 16 15 Respiratory Effort / Characteristics Non-Labored Spontaneous Respiratory Depth Normal Respiratory Pattern Regular Blood Pressure 204/84 H 172/86 H Blood Pressure Mean 124 114 Pulse Oximetry 98 94 98 Oxygen Delivery Method Room Air Room Air Room Air Sepsis Recent Fever Within 48 Hours No Sepsis New/Unexplained Change in Mental Status N/A Sepsis Action Taken by Nursing No Action Required 02/22/25 08:31 02/22/25 09:00 02/22/25 09:30 Temperature Temperature Source Pulse Rate 76 76 78 Pulse Rate from SpO2 Sensor 75 78 Pulse Rhythm Respiratory Rate 15 19 Respiratory Effort / Characteristics Respiratory Depth Respiratory Pattern Blood Pressure 158/91 H 165/90 H Blood Pressure Mean 113 115 Pulse Oximetry 96 94 Oxygen Delivery Method Room Air Room Air Sepsis Recent Fever Within 48 Hours Sepsis New/Unexplained Change in Mental Status Sepsis Action Taken by Nursing Laboratory Data 02/22/25 08:25 02/22/25 08:25 Lab Results 02/22/25 02/22/25 02/22/25 Range/Units 08:20 08:25 08:53 WBC 7.94 (4.8-10.8) K/ul RBC 5.32 (4.20-5.40) M/uL Hgb 13.9 (12.0-16.0) g/dL Hct 42.2 (37.0-47.0) % MCV 79.3 L (80.0-100.0) fL MCH 26.1 (25.0-34.0) pg MCHC 32.9 (32.0-36.0) g/dL RDW Std Deviation 38.5 (36.4-46.3) fL RDW Coeff of Amber 13.6 (11.5-14.5) % Plt Count 300 (130-400) K/uL MPV 10.0 (9.4-12.4) fL Immature Gran % (Auto) 0.3 % Neut % (Auto) 69.7 % Lymph % (Auto) 20.9 % Louisa % (Auto) 7.6 % Eos % (Auto) 1.1 % Baso % (Auto) 0.4 % Neut # (Auto) 5.54 (1.40-6.50) K/uL Lymph # (Auto) 1.66 (1.20-3.40) K/uL Louisa # (Auto) 0.60 H (0.11-0.59) K/uL Eos # (Auto) 0.09 (0.00-0.50) K/uL Baso # (Auto) 0.03 (0.00-0.20) K/uL Immature Gran # (Auto) 0.02 (0.01-0.20) K/uL Sodium 140 (136-145) mmol/L Potassium 4.2 (3.5-5.1) mmol/L Chloride 107 (98-107) mmol/L Carbon Dioxide 26 (21-32) mmol/L Anion Gap 7 (3-11) BUN 14 (6-23) mg/dl Creatinine 0.82 (0.6-1.2) mg/dl Est Cr Clr Drug Dosing 49.7 ml/min eGFR 69.62 BUN/Creatinine Ratio 17.1 (10-20) Glucose 107 H (70-99(Fasting)) mg/dl Lactate 0.8 (0.4-2.0) mmol/L Calcium 9.8 (8.6-10.3) mg/dl Magnesium 1.8 (1.7-2.4) mg/dl Total Bilirubin 0.7 (0.2-1.0) mg/dl AST 15 (13-39) U/L ALT 13 (7-52) U/L Alkaline Phosphatase 109 H (34-104) U/L Troponin I High Sens 3.2 (0-14) pg/ml Total Protein 7.5 (6.0-8.3) gm/dl Albumin 4.5 (3.4-5.0) gm/dl Globulin 3.0 (2.5-4.0) gm/dl Albumin/Globulin Ratio 1.5 (0.9-2) TSH 1.891 (0.300-4.500) uIu/ml Urine Color Yellow Urine Appearance Clear (Clear) Urine pH 7.5 (4.5-7.5) Ur Specific [place] 1.006 (1.000-1.030) Urine Protein Negative (Negative) Urine Glucose (UA) Negative (Negative) Urine Ketones Negative (Negative) Urine Blood Negative (Negative) Urine Nitrite Negative (Negative) Urine Bilirubin Negative (Negative) Urine Urobilinogen Negative (Negative) Ur Leukocyte Esterase 1+ H (Negative) Urine WBC (Auto) 6-10 H (0-5) /hpf Urine RBC (Auto) 0-2 (0-2) /hpf U Hyaline Cast (Auto) 0-2 (0-2) /lpf U Epithel Cells (Auto) 0-2 (0-2) /hpf Urine Bacteria (Auto) None Seen (None Seen) Urine Comment Adenovirus (PCR) Not Detected (NotDetected) B. pertussis DNA (PCR) Not Detected (NotDetected) B.parapertussis DNA PCR Not Detected (NotDetected) C. pneumoniae DNA (PCR) Not Detected (NotDetected) Coronavirus OC43 (PCR) Not Detected (NotDetected) Coronavirus HKU1 (PCR) Not Detected (NotDetected) Coronavirus 229E (PCR) Not Detected (NotDetected) SARS-CoV-2 (PCR) Not Detected (NotDetected) Coronavirus NL63 (PCR) Not Detected (NotDetected) Human Metapneumovir PCR Not Detected (NotDetected) Influenza Type A (PCR) Not Detected (NotDetected) Influenza Type B (PCR) Not Detected (NotDetected) M. pneumoniae (PCR) Not Detected (NotDetected) Parainfluenza 1 (PCR) Not Detected (NotDetected) Parainfluenza 2 (PCR) Not Detected (NotDetected) Parainfluenza 3 (PCR) Not Detected (NotDetected) Parainfluenza 4 (PCR) Not Detected (NotDetected) RSV (PCR) Not Detected (NotDetected) Entero/Rhino (PCR) Not Detected (NotDetected) Administered Medications Discontinued Medications Ioversol (Optiray 320 100ml) 94 ml IV ONCE ONE Stop: 02/22/25 09:47 Last Admin: 02/22/25 09:47 Dose: 94 ml Documented By: HEBER Imaging Data Radiologist's Impression: Abdomen/Pelvis CT 02/22/25 08:32 CT SCAN OF THE ABDOMEN AND PELVIS WITH IV CONTRAST CLINICAL HISTORY: Diarrhea. Nausea. Generalized abdominal pain. COMPARISON STUDY: Abdominal CT dated 05/09/2014. TECHNIQUE: Following the IV administration of 94 cc of Optiray 320, CT scan of the abdomen and pelvis is performed from the lung bases to the proximal femora. Images are reviewed in the axial, sagittal, and coronal planes. IV contrast was administered without complication. A dose lowering technique was utilized adhering to the principles of ALARA. CT DOSE: 1093.36 mGy.cm FINDINGS: Lung bases: The heart is enlarged noting trace pericardial effusion. The coronary arteries are densely calcified. There is a moderate hiatal hernia. The lung bases are clear noting mild bibasilar scarring/atelectasis. Liver: The contrast-enhanced liver is normal in size, contour, and attenuation. There is minimal central intrahepatic biliary ductal dilatation. The hepatic veins and portal veins are patent. Gallbladder: Surgically absent noting clips in the gallbladder fossa. Spleen: Normal in size and attenuation. Pancreas: Unremarkable. Adrenal glands: Unremarkable. Kidneys: The contrast enhanced kidneys are normal in size and without hydronephrosis. The kidneys enhance symmetrically. There is a 2 cm left upper pole cyst. Additional scattered subcentimeter cortical hypodensities also likely represent cysts but are too small for definitive characterization. No ureteral stone is seen Abdominal vasculature: The abdominal aorta is normal in course and caliber noting mild to moderate atherosclerotic calcification. Bowel: There is advanced colonic diverticulosis without CT evidence of acute diverticulitis. No bowel obstruction is seen. The appendix is not identified. Peritoneum: There is no intraperitoneal free air or abdominal ascites. Lymphadenopathy: None. Pelvic viscera: The bladder is mildly distended but otherwise normal in appearance. The uterus is surgically absent. No adnexal lesion is seen. There are bilateral fat-containing groin hernias. Skeletal structures: The skeletal structures are osteopenic. There is moderate lumbosacral spondylosis. No lytic or blastic lesions are seen. Arthritic change is noted in the hips. IMPRESSION: 1. No acute infectious or inflammatory findings are identified in the abdomen or pelvis. 2. Advanced colonic diverticulosis without CT evidence of acute diverticulitis 3. Moderate hiatal hernia. 4. Cardiomegaly noting coronary artery atherosclerosis. 5. Additional findings as above. ACT 112: Negative or not required by law. Electronically signed by: Mauricio Minaya M.D. 02/22/2025 10:09 AM Discharge Plan Visit Data Chief Complaint: Illness Stated Complaint: DIARRHEA, WEAKNESS, NAUSEA- WAS JUST HERE WEDNESDAY ED Provider: Fabiola Dominguez Discharge Problem: Diarrhea, Generalized weakness Patient Disposition: Admitted As Inpatient Condition: Fair Forms Stand Alone Forms: My [facility] Comprimato Prescriptions Prescriptions: No Action diltiazem HCl 240 mg capsule,extended release 24 hr 240 mg PO DAILY Qty: 90 3RF omeprazole 20 mg capsule,delayed release(DR/EC) 20 mg PO QAM Qty: 90 3RF naproxen 375 mg tablet 375 mg PO UD PRN (Reason: Pain) Patient Comments: 02/22- otc unable to verify Probiotic 3 billion cell capsule 3,000 mmu cells PO DAILY Patient Comments: 02/22- otc unable to verify Rx Instructions: administer with a meal olmesartan 20 mg tablet 20 mg PO DAILY Qty: 30 2RF flaxseed oil 1,000 mg Capsule 1,000 mg PO QAM Patient Comments: 02/22- otc unable to verify cholecalciferol (vitamin D3) [Vitamin D3] 1,000 unit Capsule 1,000 unit PO QAM Patient Comments: 02/22- otc unable to verify omega 2-zub-sun-fish oil [Fish Oil] 1,000 mg (120 mg-180 mg) Capsule 1 cap PO QAM Patient Comments: 02/22- otc unable to verify fluticasone propion-salmeterol 250-50 mcg/dose blister with device 1 inh inhalation BID PRN (Reason: sob) Patient Comments: 02/22- last filled 04/03/24 Rx Instructions: INHALE 1 PUFF BY MOUTH TWICE DAILY NEEDED FOR SHORTNESS OF BREATH Xarelto 20 mg tablet 20 mg PO DAILY Rx Instructions: TAKE ONE TABLET BY MOUTH ONCE DAILY Referrals Referrals: Anne Lopez MD [Primary Care Provider] -
[2025-02-22 08:41] LABS: Hematocrit (blood only) 42.2 % (37.0-47.0); Hemoglobin 13.9 g/dL (12.0-16.0); Immature Granulocytes # (auto) 0.02 K/uL (0.01-0.20); Immature Granulocytes % (auto) 0.3 %; Mean Corpuscular Hemoglobin 26.1 pg (25.0-34.0); Mean Corpuscular Volume 79.3 fL (80.0-100.0); Platelet Count 300 K/uL (130-400); RDW Standard Deviation 38.5 fL (36.4-46.3); Red Blood Count 5.32 M/uL (4.20-5.40); White Blood Count 7.94 K/ul (4.8-10.8)
[2025-02-22 08:59] LABS: Alanine Aminotransferase 13 U/L (7-52); Albumin Globulin Ratio 1.5 (0.9-2); Albumin Level 4.5 gm/dl (3.4-5.0); Alkaline Phosphatase 109 U/L (34-104); Anion Gap 7 (3-11); Bilirubin,Total 0.7 mg/dl (0.2-1.0); Blood Urea Nitrogen 14 mg/dl (6-23); Calcium 9.8 mg/dl (8.6-10.3); Carbon Dioxide 26 mmol/L (21-32); Chloride 107 mmol/L (98-107); Creatinine Clr Calc Pharmacy 49.7 ml/min; Globulin 3.0 gm/dl (2.5-4.0); Glucose 107 mg/dl (70-99(Fasting)); Magnesium 1.8 mg/dl (1.7-2.4); Potassium 4.2 mmol/L (3.5-5.1); Sodium 140 mmol/L (136-145); Total Protein 7.5 gm/dl (6.0-8.3)
[2025-02-22 08:59] LABS: Appearance Urine Clear (Clear); Bacteria Urine Automated None Seen (None Seen); Cast Urine Automated 0-2 /lpf (0-2); Epithelial Cell Urine Auto 0-2 /hpf (0-2); Glucose Urine UA Negative (Negative); RBC Urine Automated 0-2 /hpf (0-2)
[2025-02-22 09:14] LABS: Thyroid Stimulating Hormone 1.891 uIu/ml (0.300-4.500)
[2025-02-22] MEDS: OPTIRAY 320 100ml IV ONE (09:47)
[2025-02-22 10:10] LABS: Chlamydia pneumoniae PCR Not Detected (NotDetected); Coronavirus 229E PCR Not Detected (NotDetected); Coronavirus CoV-2 (COVID19)PCR Not Detected (NotDetected); Coronavirus HKU1 PCR Not Detected (NotDetected); Coronavirus NL63 PCR Not Detected (NotDetected); Coronavirus OC43PCR Not Detected (NotDetected); Human Metapneumovirus PCR Not Detected (NotDetected); Parainfluenza Virus 1 PCR Not Detected (NotDetected); Parainfluenza Virus 2 PCR Not Detected (NotDetected); Parainfluenza Virus 3 PCR Not Detected (NotDetected); Parainfluenza Virus 4 PCR Not Detected (NotDetected); Respiratory Syncytial VirusPCR Not Detected (NotDetected); Rhinovirus/Enterovirus PCR Not Detected (NotDetected)
--- NOTE | 2025-02-22 10:11 | CT Scan Report ---
CT SCAN OF THE ABDOMEN AND PELVIS WITH IV CONTRAST CLINICAL HISTORY: Diarrhea. Nausea. Generalized abdominal pain. COMPARISON STUDY: Abdominal CT dated 05/09/2014. TECHNIQUE: Following the IV administration of 94 cc of Optiray 320, CT scan of the abdomen and pelvi s is performed from the lung bases to the proximal femora. Images are reviewed in the axial, sagittal , and coronal planes. IV contrast was administered without complication. A dose lowering technique wa s utilized adhering to the principles of ALARA. CT DOSE: 1093.36 mGy.cm FINDINGS: Lung bases: The heart is enlarged noting trace pericardial effusion. The coronary arteries are densel y calcified. There is a moderate hiatal hernia. The lung bases are clear noting mild bibasilar scarri ng/atelectasis. Liver: The contrast-enhanced liver is normal in size, contour, and attenuation. There is minimal cent ral intrahepatic biliary ductal dilatation. The hepatic veins and portal veins are patent. Gallbladder: Surgically absent noting clips in the gallbladder fossa. Spleen: Normal in size and attenuation. Pancreas: Unremarkable. Adrenal glands: Unremarkable. Kidneys: The contrast enhanced kidneys are normal in size and without hydronephrosis. The kidneys enh ance symmetrically. There is a 2 cm left upper pole cyst. Additional scattered subcentimeter cortical hypodensities also likely represent cysts but are too small for definitive characterization. No uret eral stone is seen Abdominal vasculature: The abdominal aorta is normal in course and caliber noting mild to moderate at herosclerotic calcification. Bowel: There is advanced colonic diverticulosis without CT evidence of acute diverticulitis. No bowel obstruction is seen. The appendix is not identified. Peritoneum: There is no intraperitoneal free air or abdominal ascites. Lymphadenopathy: None. Pelvic viscera: The bladder is mildly distended but otherwise normal in appearance. The uterus is caridad gically absent. No adnexal lesion is seen. There are bilateral fat-containing groin hernias. Skeletal structures: The skeletal structures are osteopenic. There is moderate lumbosacral spondylosi s. No lytic or blastic lesions are seen. Arthritic change is noted in the hips. IMPRESSION: 1. No acute infectious or inflammatory findings are identified in the abdomen or pelvis. 2. Advanced colonic diverticulosis without CT evidence of acute diverticulitis 3. Moderate hiatal hernia. 4. Cardiomegaly noting coronary artery atherosclerosis. 5. Additional findings as above. ACT 112: Negative or not required by law. Electronically signed by: Mauricio Minaya M.D. 02/22/2025 10:09 AM
--- NOTE | 2025-02-22 11:21 | History & Physical Report ---
Date of Service February 22, 2025 Assessment & Plan (1) Diarrhea: (2) Generalized weakness: (3) Pulmonary embolism: (4) HTN (hypertension): Plan Is an 84-year-old female with a history of PE, hypertension breast cancer who presents to the hospital on account of intractable diarrhea. 1. Acute diarrhea: By her own admission, patient recently completed a course of antibiotics for UTI However has been having intractable diarrhea for the past 5 days. Denies abdominal pain or cramps. CT scan of the abdomen and pelvis did not show any acute pathology Will obtain stool sample stool studies Continue oral intake, 2. Poorly controlled high blood pressure: Patient recently had olmesartan added to her regimen however still presents to the hospital with a blood pressure of 170s systolic and 100 diastolic Will add hydralazine p.o. 10 mg 3 times daily 3.History of PE: Has a history of multiple blood clots, hypercoagulable state On lifetime anticoagulation with Xarelto 4. History of breast cancer: Status post bilateral mastectomy History of Present Illness Chief Complaint: Diarrhea Primary Care Provider: Anne Lopez MD This is an 84-year-old female with a history of hypertension, bilateral breast cancer, status post bilateral mastectomy, DVT on Xarelto who presents to the hospital today on account of intractable diarrhea. According to the patient and according to the daughter from [place] all the history was obtained, patient has been having episodes of diarrhea for the past 5 days. By her own admission, she just completed a course of antibiotics for UTI and said the last dose of antibiotic was last Wednesday. However she initially attributed the effect of the antibiotics as responsible for the diarrhea however she is now disturbed and bothered that despite having finished antibiotics a few days she still having diarrhea. She denies abdominal pain or cramps of blood in stool but endorses some fevers or chills. Here in the emergency department, a CT scan of the abdomen pelvis was done with did not show any acute infectious or inflammatory findings only evidence of diverticulosis but no evidence of acute diverticulitis. CBC and BMP were essentially within normal limits. Patient will be admitted to the hospital for further investigation and further management. Allergies Allergy/AdvReac Type Severity Reaction Status Date / Time Sulfa (Sulfonamide Allergy Intermediate HIVES Verified 02/19/25 13:02 Antibiotics) oxycodone Allergy Unknown RASH Verified 02/19/25 13:02 lisinopril AdvReac Mild Cough Uncoded 02/19/25 13:15 Home Medications Medication Instructions Recorded Confirmed Type cholecalciferol (vitamin D3) 25 1,000 unit PO QAM 11/24/18 02/22/25 History mcg (1,000 unit) capsule (Vitamin D3) flaxseed oil 1,000 mg capsule 1,000 mg PO QAM 11/24/18 02/22/25 History omega 1-uge-prh-fish oil 1,000 mg 1 cap PO QAM 11/24/18 02/22/25 History (120 mg-180 mg) capsule (Fish Oil) lactobacillus combination no.4 3 3,000 mmu cells PO DAILY 10/23/20 02/22/25 History billion cell capsule (Probiotic) naproxen 375 mg tablet 375 mg PO UD PRN Pain 10/23/20 02/22/25 History diltiazem HCl 240 mg capsule,24 240 mg PO DAILY #90 caps 03/14/24 02/22/25 Rx hr,extended release omeprazole 20 mg capsule,delayed 20 mg PO QAM #90 caps 04/11/24 02/22/25 Rx release olmesartan 20 mg tablet 20 mg PO DAILY #30 tabs 02/19/25 02/22/25 Rx fluticasone 250 mcg-salmeterol 50 1 inh inhalation BID PRN sob 02/22/25 02/22/25 History mcg/dose blistr powdr for inhalation rivaroxaban 20 mg tablet (Xarelto) 20 mg PO DAILY 02/22/25 02/22/25 History Past Med/Surg History Problem List (Updated 02/22/25 @ 10:43 by Fabiola Dominguez MD) Generalized weakness (Acute) Diarrhea (Acute) Feeling unwell (Acute) Elevated blood pressure reading with diagnosis of hypertension (Acute) Osteoporosis Systolic ejection murmur History of Clostridioides difficile colitis Osteoarthritis of left knee Hypercoagulable state Paresthesia of both feet (Chronic) Chronic GERD (Chronic) Asthma (Chronic) HTN (hypertension) (Chronic) 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) Medical History (Updated 02/22/25 @ 10:43 by Fabiola Dominguez MD) UTI (urinary tract infection) Abdominal pain Clostridium difficile infection Pneumonia Pulmonary embolism Surgical History History of tonsillectomy History of lymph node biopsy History of colonoscopy S/P mastectomy, bilateral History of hysterectomy History of appendectomy History of cholecystectomy Family History Brother Leukemia-lymphoma, T-cell, acute, [id number] Mother Breast cancer Hypertension Father Congestive heart failure Daughter Diabetes Other No significant family history Denies family history of Ovarian cancer Prostate cancer Myocardial infarction Lung cancer Colorectal cancer Social History Smoking Status: Never smoker Second Hand Exposure: No; Do You Dip or Chew Tobacco: No; Hx Alcohol Use: Yes (Once or twice a year) Alcohol type: beer, wine and hard liquor Alcohol type Comment: social Alcohol Intake Frequency: Monthly or Less Hx Substance Use: No Preferred Language: Ukrainian Communication Ability: Effective Visual Impairment: Limited Hearing Ability: Use of Hearing Aid marital status: Single Current Living Situation: Alone current occupational status: retired How many Children do You have: 2 Feels Safe at Home: Yes Childhood Exposure to Second-Hand Smoke: No Diet: regular caffeine: No (coke once in awhile and tea ) Dental Care, Regularly: Yes Physical Activity Frequency: 1-2 Times per Week Seatbelt Use: always Sunscreen Use: Yes Assistive Devices: Glasses and Hearing Aid - Bilateral Review of Systems Review of Systems: All systems reviewed are negative, apart from the ones contained in the history. Physical Exam Physical Exam: The patient is awake, alert and oriented 3, well developed and well nourished, normocephalic and atraumatic, lying in bed and in no acute distress. HEENT--PERRL, EOMI, mucous membranes and oropharynx mildly dry Neck--supple. No JVD. No bruits. Thyroid normal, trachea midline, no adenopathy. Heart--normal S1 and S2. No murmurs, rubs or gallops. Lungs--clear bilaterally, no respiratory distress, no accessory muscle use. Abdomen--normal bowel sounds and soft. Extremities--no cyanosis or clubbing. No edema. Dermatologic--normal skin turgor, normal color, no abnormal lymph nodes, no rash. Neurologic--cranial nerves II through XII grossly intact. Rheumatologic--normal range of motion. Psychiatric--normal affect. Results & Data Results & Data Vital Signs (Past 12 Hours) Vital Signs Temp Pulse Resp BP Pulse Ox O2 Del Method 02/22/25 11:00 77 18 173/111 H 97 Room Air 02/22/25 10:30 83 19 187/117 H 96 Room Air 02/22/25 09:30 78 19 165/90 H 94 Room Air 02/22/25 09:00 76 15 158/91 H 96 Room Air 02/22/25 08:31 76 02/22/25 08:30 75 15 172/86 H 98 Room Air 02/22/25 08:10 77 16 94 Room Air 02/22/25 08:03 97.7 F 81 20 204/84 H 98 Room Air PG Care Time/CCT Total # of Minutes Spent Total Time Spent with Patient: Total time spent is greater than 50% in coordination of care (as documented) at patient's floor/unit and/or counseling patient: Coding Level of Care Code 60367 INT INP/OBS CARE 2/55MIN Diagnoses Diarrhea R19.7 Generalized weakness R53.1 Pulmonary embolism I26.99 HTN (hypertension) I10 Hypertension type: unspecified Time Spent (min) 55 (4) HTN (hypertension) Hypertension type: unspecified Qualified Code(s): I10 - Essential (primary) hypertension
[2025-02-22] MEDS: hydrALAZINE 10 MG TAB PO SCH (11:41)
[2025-02-22] MEDS ORDERED: FLUTICASONE/SALMETEROL 250/50 (ADVAIR) 14 PUFF/1 INHALER INH PRN (13:35)
[2025-02-22] MEDS ORDERED: ACETAMINOPHEN 325 MG TAB PO PRN (13:35)
[2025-02-22] MEDS ORDERED: ALBUT/IPRATROP 3MG/0.5MG NEB 3 ML VIAL NEB PRN (13:42)
[2025-02-22] MEDS ORDERED: Nursing to Pharmacy Communication SCH (14:00)
[2025-02-22] MEDS: SODIUM CHLORIDE 0.9% 1,000 ML IV SCH (14:31)
[2025-02-22] MEDS: LOSARTAN POTASSIUM 50 MG TAB PO SCH (14:32)
[2025-02-22] MEDS: RIVAROXABAN 20 MG TAB PO SCH (14:32)
[2025-02-22 16:29] LABS: Cdiff Toxin B Gene (2yr or >) Negative Cdiff Gene (Neg)
[2025-02-22 17:04] LABS: Adenovirus F 40/41 PCR Not Detected (NotDetected); Campylobacter PCR Not Detected (NotDetected); Enteroaggregative E.coli(EAEC) Not Detected (NotDetected); Shiga-like Toxin E.coli (STEC) Not Detected (NotDetected); Vibrio species PCR Not Detected (NotDetected)
--- NOTE | 2025-02-22 22:18 | Electrocardiogram Report ---
Test Reason : Blood Pressure : */* mmHG Vent. Rate : 73 BPM Atrial Rate : 73 BPM P-R Int : 184 ms QRS Dur : 100 ms QT Int : 408 ms P-R-T Axes : 46 0 26 degrees QTcB Int : 449 ms Normal sinus rhythm Minimal voltage criteria for LVH, may be normal variant ( Raoul product ) Abnormal ECG When compared with ECG of 20-Feb-2025 15:42, No significant change was found Confirmed by Steven Teague ([id number]) on 02/22/2025 10:17:59 PM Referred By: REFERRED SELF Confirmed By: Steven Teague
[2025-02-23 06:55] LABS: Hematocrit (blood only) 34.5 % (37.0-47.0); Hemoglobin 11.5 g/dL (12.0-16.0); Mean Corpuscular Hemoglobin 26.6 pg (25.0-34.0); Mean Corpuscular Volume 79.7 fL (80.0-100.0); Platelet Count 257 K/uL (130-400); RDW Standard Deviation 39.0 fL (36.4-46.3); Red Blood Count 4.33 M/uL (4.20-5.40); White Blood Count 6.72 K/ul (4.8-10.8)
[2025-02-23 07:10] LABS: Anion Gap 5.0 (3-11); Blood Urea Nitrogen 17.0 mg/dl (6-23); Calcium 8.7 mg/dl (8.6-10.3); Carbon Dioxide 24.0 mmol/L (21-32); Chloride 112.0 mmol/L (98-107); Creatinine Clr Calc Pharmacy 46.8 ml/min; Glucose 90.0 mg/dl (70-99(Fasting)); Potassium 4.2 mmol/L (3.5-5.1); Sodium 141.0 mmol/L (136-145)
[2025-02-23] MEDS ORDERED: LOSARTAN POTASSIUM 50 MG TAB PO SCH (09:00)
--- NOTE | 2025-02-23 09:49 | Hospitalist Progress Note ---
Date of Service February 23, 2025 Assessment & Plan (1) Diarrhea: (2) Generalized weakness: (3) Pulmonary embolism: (4) HTN (hypertension): Plan Is an 84-year-old female with a history of PE, hypertension breast cancer who presents to the hospital on account of intractable diarrhea. 1. Acute diarrhea: By her own admission, patient recently completed a course of antibiotics for UTI However has been having intractable diarrhea for the past 5 days, prior to presentation Denies abdominal pain or cramps. CT scan of the abdomen and pelvis did not show any acute pathology stool studies were negative for everything Continue oral intake, 2. Poorly controlled high blood pressure: Patient recently had olmesartan added to her regimen however still presents to the hospital with a blood pressure of 170s systolic and 100 diastolic Will add hydralazine p.o. 10 mg 3 times daily BP now under better control 3.History of PE: Has a history of multiple blood clots, hypercoagulable state On lifetime anticoagulation with Xarelto 4. History of breast cancer: Status post bilateral mastectomy Admission and Anticipated Discharge Date Admission Date: February 22, 2025 Subjective patient seen and examined, says she feels a lot better, no episode of diarrhea so far this morning Review of Systems Review of Systems: All systems reviewed are negative, apart from the ones contained in the history. Physical Exam Physical Exam: The patient is awake, alert and oriented 3, well developed and well nourished, normocephalic and atraumatic, lying in bed and in no acute distress. HEENT--PERRL, EOMI, mucous membranes and oropharynx mildly dry Neck--supple. No JVD. No bruits. Thyroid normal, trachea midline, no adenopathy. Heart--normal S1 and S2. No murmurs, rubs or gallops. Lungs--clear bilaterally, no respiratory distress, no accessory muscle use. Abdomen--normal bowel sounds and soft. Extremities--no cyanosis or clubbing. No edema. Dermatologic--normal skin turgor, normal color, no abnormal lymph nodes, no rash. Neurologic--cranial nerves II through XII grossly intact. Rheumatologic--normal range of motion. Psychiatric--normal affect. Results & Data Results & Data Vital Signs (Past 12 Hours) Vital Signs Temp Pulse Resp BP Pulse Ox O2 Del Method 11/21/25 08:23 97.3 F L 69 18 160/80 H 97 Room Air 02/23/25 07:12 98.1 F 68 23 159/79 H 95 Room Air 02/23/25 04:21 150/82 H PG Care Time/CCT Total # of Minutes Spent Total Time Spent with Patient: Total time spent is greater than 50% in coordination of care (as documented) at patient's floor/unit and/or counseling patient: Coding Level of Care Code 86282 SUB INP/OBS CARE 2/35MIN Diagnoses Diarrhea R19.7 Generalized weakness R53.1 Pulmonary embolism I26.99 HTN (hypertension) I10 Hypertension type: unspecified Time Spent (min) 35 (4) HTN (hypertension) Hypertension type: unspecified Qualified Code(s): I10 - Essential (primary) hypertension
[2025-02-23] MEDS ORDERED: CALCIUM CARBONATE 500 MG CHEWABLE TAB PO PRN (11:05)
[2025-02-23 12:02] VITALS: BP 160/90; PULSE 73; RESP 22; TEMP 98.1; O2SAT 95
--- NOTE | 2025-02-23 14:24 | Discharge Summary ---
Date of Service February 23, 2025 Admission HPI Per Admitting Provider This is an 84-year-old female with a history of hypertension, bilateral breast cancer, status post bilateral mastectomy, DVT on Xarelto who presents to the hospital today on account of intractable diarrhea. According to the patient and according to the daughter from [place] all the history was obtained, patient has been having episodes of diarrhea for the past 5 days. By her own admission, she just completed a course of antibiotics for UTI and said the last dose of antibiotic was last Wednesday. However she initially attributed the effect of the antibiotics as responsible for the diarrhea however she is now disturbed and bothered that despite having finished antibiotics a few days she still having diarrhea. She denies abdominal pain or cramps of blood in stool but endorses some fevers or chills. Here in the emergency department, a CT scan of the abdomen pelvis was done with did not show any acute infectious or inflammatory findings only evidence of diverticulosis but no evidence of acute diverticulitis. CBC and BMP were essentially within normal limits. Patient will be admitted to the hospital for further investigation and further management. Admission Exam (Per Admitting) Constitutional The patient is awake, alert and oriented 3, well developed and well nourished, normocephalic and atraumatic, lying in bed and in no acute distress. HEENT--PERRL, EOMI, mucous membranes and oropharynx mildly dry Neck--supple. No JVD. No bruits. Thyroid normal, trachea midline, no adenopathy. Heart--normal S1 and S2. No murmurs, rubs or gallops. Lungs--clear bilaterally, no respiratory distress, no accessory muscle use. Abdomen--normal bowel sounds and soft. Extremities--no cyanosis or clubbing. No edema. Dermatologic--normal skin turgor, normal color, no abnormal lymph nodes, no rash. Neurologic--cranial nerves II through XII grossly intact. Rheumatologic--normal range of motion. Psychiatric--normal affect. Discharge Data Consultations 02/22/25 10:43 ED Decision to Admit Stat Hospital Course (1) Diarrhea: (2) Generalized weakness: (3) Pulmonary embolism: (4) HTN (hypertension): Plan Is an 84-year-old female with a history of PE, hypertension breast cancer who presents to the hospital on account of intractable diarrhea. 1. Acute diarrhea: Now resolved By her own admission, patient recently completed a course of antibiotics for UTI Denies abdominal pain or cramps. CT scan of the abdomen and pelvis did not show any acute pathology stool studies were negative for everything Continue oral intake, She expressed a willingness to be discharged 2. Poorly controlled high blood pressure: Patient recently had olmesartan added to her regimen however still presents to the hospital with a blood pressure of 170s systolic and 100 diastolic Will add hydralazine p.o. 10 mg BID times daily, discharge her on it in addition to her [place] BP now under better control 3.History of PE: Has a history of multiple blood clots, hypercoagulable state On lifetime anticoagulation with Xarelto 4. History of breast cancer: Status post bilateral mastectomy Coding Level of Care Code 39836 INP/OBS DISCH >30 MIN Diagnoses Diarrhea R19.7 Generalized weakness R53.1 Pulmonary embolism I26.99 HTN (hypertension) I10 Hypertension type: unspecified Time Spent (min) 35
[2025-02-23] MEDS ORDERED: RIVAROXABAN 20 MG TAB PO SCH (15:30)
== END 2025-02-23 15:28 | disposition home or self-care (01) | DRG 392 ==
LOC: ED 07:56 → EDINP 10:59 → 3W 13:32